=== PATIENT | female | born 1975 | race Hispanic/Latino ===

== ENCOUNTER → 2021-04-07 | Outpatient (CLI) | payer MEDICAID ==
[~2021-04-07] MED LIST: AMOX-429 PO
== END | disposition home or self-care (01) ==
LOC: ICE 13:50
PROVIDERS: ATTEND Internal Medicine Cardiovascular Disease
DX: U07.1 COVID-19 (principal)
CPT/HCPCS: 87635; C9803

== ENCOUNTER 2024-09-02 11:23 | Emergency (ER) | payer SELFPAY ==
[~2024-09-02] VITALS: Ht 160 cm; Wt 81.6 kg
[2024-09-02 11:25] VITALS: BP 184/99; PULSE 45; RESP 16; TEMP 97.8
[2024-09-02] MEDS: DiphenhydrAMINE HCL 50 MG/ML VIAL IV STA (11:47)
[2024-09-02] MEDS: 0.9%NACL 1000ML 1,000 ML IV STA (11:47)
[2024-09-02 11:55] LABS: BASOPHILS # (AUTO) 0.06 K/uL (0.00-0.20); EOSINOPHILS # (AUTO) 0.21 K/uL (0.00-0.70); EOSINOPHILS % (AUTO) 3.4 % (0.0-8.0); HEMATOCRIT 38.6 % (36-48); IMMATURE GRANULOCYTE ABSOLUTE 0.02 K/uL (0-1); LYMPHOCYTES # (AUTO) 1.9 K/uL (1.0-4.8); LYMPHOCYTES % (AUTO) 31.2 % (21.0-51.0); MEAN CORPUSCULAR HEMOGLOBIN 29.6 pg (27.0-33.0); MEAN CORPUSCULAR HGB CONC 32.1 g/dL (32.0-36.0); MEAN CORPUSCULAR VOLUME 92.1 fL (79-99); MONOCYTES # (AUTO) 0.4 K/uL (0.1-1.0); MONOCYTES % (AUTO) 6.1 % (3.0-13.0); NEUTROPHILS # (AUTO) 3.5 K/uL (1.8-7.7); PLATELET COUNT (AUTO) 290 K/uL (130-400); RED BLOOD CELL COUNT(AUTO) 4.19 MIL/uL (4.00-5.50); WHITE BLOOD COUNT (AUTO) 6.1 K/uL (4.8-10.8)
[2024-09-02 12:09] LABS: CREATININE 0.6 mg/dL (0.5-1.0); POTASSIUM 4.3 mmol/L (3.5-5.1)
--- NOTE | 2024-09-02 13:04 | HMCIMG ---
CT ORB/FRANK/EAR W/O CONTRAST HISTORY: Right infraorbital cellulitis COMPARISON: None TECHNIQUE: Multiple sequential high-resolution axial images of the orbits were obtained. Postprocessing sagittal and coronal reconstruction images were also obtained. Patient was not given contrast through intravenous route. FINDINGS: No evidence of intraconal or extraconal mass is seen. Orbital globes are intact. The extraocular muscles are unremarkable. Soft tissue swelling is seen at the inferior aspect of the right orbit suggestive of cellulitis. Nasal septum is mildly deviated towards right. There is minimal mucoperiosteal thickening involving the bilateral maxillary sinuses. The infundibula are patent bilaterally. No acute displaced fracture is seen. There is no evidence of air-fluid level in the paranasal sinuses. Parapharyngeal fat planes are preserved bilaterally. IMPRESSION: 1. No acute displaced fracture is seen. Mild right infraorbital cellulitis. No evidence of intraconal mass. No mass is seen. CT was performed with one or more following dose reduction techniques: automated exposure control, adjustment of the mA and kv according to patient's size, or use of a iterative reconstruction technique.
[2024-09-02] MEDS: Solu-medROL 125MG VIAL IVP ONE (13:33)
[2024-09-02] MEDS: CLINDAMYCIN IVPB 600MG/50ML 50 ML IV STA (13:49)
[2024-09-02] MEDS ORDERED: CLIN-141 PO (14:51)
--- NOTE | 2024-09-02 14:53 | ERN ---
ED Note History of Present Illness Stated Complaint: RT EYE RASH/SWELLING Chief Complaint: Eye Problems Time Seen by MD: : Time Seen by Midlevel: 11:28 Dictation: [age] year old [place] for right infraorbital cellulitis for three weeks to rule out an abscess and patient is feels swelling in her throat. Patient states the swelling in the rash is intermittent comes and goes. Does not have any vision changes or vision impairment. Does not have any pain to the rash or the eye. Allergies: Coded Allergies: vancomycin (Unverified Allergy, Mild, ITCHNG, 02/03/14) Home Meds Active Scripts Clindamycin HCl (Clindamycin HCl) 300 Mg Capsule, 1 CAP PO TID for 10 Days, #30 CAP 0 Refills Prov:RORO FRANZ NP 09/02/24 Amoxicillin/Potassium Clav (Augmentin 875-125 Tablet) 1 Each Tablet, 1 EACH PO BID, #14 TAB Prov:CULLEN HAQ MD 02/04/14 Past Medical History Past Medical History: No Pertinent History Surgical History: Hysterectomy Review of System Dictation Constitutional: Negative for fever,chills, and weight loss Eyes: Negative for injury, pain,redness, and discharge ENT: Negative for injury,pain or swelling, swelling to the right eye Cardiovascular: Negative for chest pain, palpitations, and edema Respiratory: Negative for shortness of breath, cough, and wheezing, Abdomen/GI: Negative for abdominal pain, nausea, vomiting, diarrhea, and constipation Back: Negative for injury and pain : Negative for injury, bleeding and discharge MS/Extremity: Negative for injury and deformity Skin: Negative for rash, and discoloration Neuro: Negative for headache, weakness, numbness, tingling, and seizure Psych: Negative for suicide ideation, homicidal ideation, and hallucinations Review of Systems: was completed Initial Vital Sign VS Vital Signs Date Time Temp Pulse Resp B/P (MAP) Pulse Ox O2 Delivery O2 Flow Rate FiO2 09/02/24 11:25 97.9 45 16 184/99 100 0 Physical Exam Dictation General: awake, alert, NAD Head/Face: Normocephalic, atraumatic Eyes: PERRL, EOMI, vision at baseline, mild swelling noted to the right eye, and rash like appearance infraorbitally, there is no tearing, crusting, sclera is intact, vision is intact. No pain on EOM ENT: oral cavity clear, TMs clear, no signs of infection Neck: Trachea midline, supple, no nuchal rigidity Cardiovascular: RRR, normal S1/S2, No MRGs, no JVD Respiratory: CTAB, no respiratory distress, No rales or wheezes Abdomen: Soft, non-tender, non-distended, normal bowel sounds, no guarding or rebound. Skin: Warm, dry, normal turgor, no rash MS/Extremity: Pulses equal, no cyanosis, neurovascular intact, FROM Neuro: COAx4, GCS 15, strength 5/5, CN 2-12 intact, normal cerebellar exam, normal gait, Psych: Normal behavior, mood, and affect normal Results (Laboratory/Radiology) Laboratory/Radiology Laboratory Tests Test 09/02/24 11:45 White Blood Count 6.1 K/uL (4.8-10.8) Red Blood Count 4.19 MIL/uL (4.00-5.50) Hemoglobin 12.4 g/dL (12.0-16.0) Hematocrit 38.6 % (36-48) Mean Corpuscular Volume 92.1 fL (79-99) Mean Corpuscular Hemoglobin 29.6 pg (27.0-33.0) Mean Corpuscular Hemoglobin Concent 32.1 g/dL (32.0-36.0) Red Cell Distribution Width 14.0 % (11.0-15.5) Platelet Count 290 K/uL (130-400) Mean Platelet Volume 9.4 fL (7.5-10.5) Immature Granulocyte % (Auto) 0.3 % (0-1) Neutrophils (%) (Auto) 58.0 % (40.0-77.0) Lymphocytes (%) (Auto) 31.2 % (21.0-51.0) Monocytes (%) (Auto) 6.1 % (3.0-13.0) Eosinophils (%) (Auto) 3.4 % (0.0-8.0) Basophils (%) (Auto) 1.0 % (0.0-5.0) Neutrophils # (Auto) 3.5 K/uL (1.8-7.7) Lymphocytes # (Auto) 1.9 K/uL (1.0-4.8) Monocytes # (Auto) 0.4 K/uL (0.1-1.0) Eosinophils # (Auto) 0.21 K/uL (0.00-0.70) Basophils # (Auto) 0.06 K/uL (0.00-0.20) Absolute Immature Granulocyte (auto 0.02 K/uL (0-1) Nucleated Red Blood Cells 0.0 % (0.0-0.19) Sodium Level 139 mmol/L (136-145) Potassium Level 4.3 mmol/L (3.5-5.1) Chloride Level 106 mmol/L (101-111) Carbon Dioxide Level 32 mmol/L (21-32) Blood Urea Nitrogen 10 mg/dL (7-18) Creatinine 0.6 mg/dL (0.5-1.0) Glomerular Filtration Rate Calc 111 mL/min (>90) Random Glucose 93 mg/dL (70-105) Lactic Acid Level 1.2 mmol/L (0.8-2.5) Total Calcium 9.2 mg/dL (8.5-10.1) Labs Reviewed?: Yes EKG Comment: EKGs did not 1522, sinus rhythm at a rate of 51. No STEMI interpreted by ER MD CT Scan Comment: [place] [phone] IMAGING REPORT Signed PATIENT: ERIKA JIMENEZ MR#: [id number] : 1975 SEX: F AGE: 48 LOCATION: ED ORDER [id number] STATUS: REG ER REPORT#: [id number] SERVICE 1131 REASON: right eye infraorbital cellulitis, r/o abscess ORDERING PHYSICIAN: RORO FRANZ NP PROCEDURE: ORB IAC WO - CT ORB/ANTONINA/EAR W/O CONTRAST CT ORB/ANTONINA/EAR W/O CONTRAST HISTORY: Right infraorbital cellulitis COMPARISON: None TECHNIQUE: Multiple sequential high-resolution axial images of the orbits were obtained. Postprocessing sagittal and coronal reconstruction images were also obtained. Patient was not given contrast through intravenous route. FINDINGS: No evidence of intraconal or extraconal mass is seen. Orbital globes are intact. The extraocular muscles are unremarkable. Soft tissue swelling is seen at the inferior aspect of the right orbit suggestive of cellulitis. Nasal septum is mildly deviated towards right. There is minimal mucoperiosteal thickening involving the bilateral maxillary sinuses. The infundibula are patent bilaterally. No acute displaced fracture is seen. There is no evidence of air-fluid level in the paranasal sinuses. Parapharyngeal fat planes are preserved bilaterally. IMPRESSION: 1. No acute displaced fracture is seen. Mild right infraorbital cellulitis. No evidence of intraconal mass. No mass is seen. CT was performed with one or more following dose reduction techniques: automated exposure control, adjustment of the mA and kv according to patient's size, or use of a iterative reconstruction technique. DICTATED BY: ALTAF CONTEH MD DATE: 09/02/24 125 ELECTRONICALLY SIGNED BY: ALTAF CONTEH MD DATE: 09/02/24 1304 ED Course ED Course Orders Procedure Category Date Status Time Cbc With Differential LAB 09/02/24 Complete 11:28 Basic Metabolic Panel LAB 09/02/24 Complete 11:28 Lactic Acid LAB 09/02/24 Complete 11:28 Blood Cult OUMOU 09/02/24 In Process 11:28 Diphenhydramine Hcl PHA 09/02/24 Complete (Benadryl Inj) 11:28 0.9%Nacl 1000ml (Ns PHA 09/02/24 Complete 1000ml) 11:28 Ct Orb/Antonina/Ear W/O CT 09/02/24 Resulted Contrast 11:31 Methylprednisolone PHA 09/02/24 Complete Succ 125mg (Solu-Medr 13:30 Clindamycin Ivpb PHA 09/02/24 Complete 600mg/50ml (Cleocin 13:38 12 Lead Ekg Tracing- EKG 09/02/24 Complete Technical 14:52 Current Medications Medications (Trade) Dose Ordered Sig/Alex Route PRN Reason Start Time Stop Time Status Last Admin Dose Admin Clindamycin HCl/ Dextrose 50 ml @ 100 mls/hr Q8H STAT IV 09/02/24 13:38 09/02/24 14:07 DC 09/02/24 13:49 Diphenhydramine HCl (BENAdryl INJ) 25 mg ONCE STAT IV 09/02/24 11:28 09/02/24 11:33 DC 09/02/24 11:47 Methylprednisolone Sodium Succinate (Solu-medROL 125MG) 125 mg ONCE ONCE IVP 09/02/24 13:30 09/02/24 13:31 DC 09/02/24 13:33 Sodium Chloride 1,000 ml @ 1,000 mls/hr Q1H STAT IV 09/02/24 11:28 09/02/24 12:27 DC 09/02/24 11:47 Vital Signs Date Time Temp Pulse Resp B/P (MAP) Pulse Ox O2 Delivery O2 Flow Rate FiO2 09/02/24 11:25 97.9 45 16 184/99 100 0 Medical Decision Making MDM MDM: [age] year old [place] for right infraorbital cellulitis for three weeks to rule out an abscess and patient is feels swelling in her throat. Patient states the swelling in the rash is intermittent comes and goes. Does not have any vision changes or vision impairment. Does not have any pain to the rash or the eye.Pt is bradycardic, but does not have any lightheaded, chest pain, dizziness, or chest discomfort. Lab work is unremarkable. Lactic normal. CT scan of the orbit shows info over cellulitis but no abscess. Patient will receive clindamycin in the ER and will be discharged on clindamycin to follow up with outpatient PCP. Discussed findings with the patient, educated patient to return to the hospital if she develops any vision changes, worsening condition. Patient verbalized understanding, answered all questions. Differential diagnosis: Shingles, cellulitis, infraorbital abscess Rationale: Tests considered and ordered secondary to shared decision making include: Previous outside records reviewed: Old ER visits. Risk of complication and/or morbidity or mortality of patient management: None Medications-Per medication reconciliation Need for hospitalization: Patient does not meet criteria for hospitalization. Need for emergency major/minor surgery: No There are no social concerns with this patient. Prescription drug management Prescriptions will include symptomatic care Patient's prior external medical records from other ER visits were reviewed by me as indicated. Prior testing and results from previous visits were reviewed. Prior tests were taken into account with medical decision making and resource utilization, independent historian/historians were used to obtain complete medical history. I independently interpreted the test that were performed, results were reviewed by me and considered findings on radiology if ordered. Medical management and examination interpretation discussions were had by me with other qualified healthcare professionals as indicated for the patient's care. DX & DISP Disposition: Discharge Departure Impression: Primary Impression: Eye problem Additional Impression: Cellulitis Condition: Stable Scripts Clindamycin HCl (Clindamycin HCl) 300 Mg Capsule 1 CAP PO TID for 10 Days, #30 CAP 0 Refills Prov: RORO FRANZ NP 09/02/24 Additional Instructions: follow up with PCP in 1-2 days. take antibiotic as prescribed, return to ER for worsening conditions. Referrals: SHERLYN GO DO (PCP) Time of Disposition: 14:50 I have reviewed the case, and I agree with, Diagnosis and Plan RORO FRANZ NP Sep 02, 2024 14:53
--- NOTE | 2024-09-02 15:25 | EKG ---
[facility] Test Date: 2024-09-02 Test Time: 15:22:20 Pat Name: ERIKA JIMENEZ Department: ED Room: Gender: F [employer]: [birth year] : 1975 Requested By: RORO FRANZ Order Number: [id number] Reading MD: Herb Villavicencio Measurements Intervals [place] Rate: 51 P: 45 MD: 192 QRS: 1 QRSD: 96 T: 67 QT: 438 QTc: 403 Interpretive Statements Sinus rhythm No previous ECG available for comparison Electronically Signed On 09-02-2024 17:21:23 CDT by Herb Villavicencio Please click the below link to view image of tracing.
== END 2024-09-02 15:40 | disposition home or self-care (01) ==
LOC: EDH 11:23
DX: H05.011 Cellulitis of right orbit (principal); Z88.1 Allergy status to other antibiotic agents; Z90.710 Acquired absence of both cervix and uterus
CPT/HCPCS: 99285; 96365; 70480; 96361; 96375; 80048; 85025; 87040 ×2; 83605; 36415; 93005; J2919; J1200; J7030; J3490